=== PATIENT | male | born 1945 | race Caucasian/White ===

== ENCOUNTER 2017-06-14 18:49 | Emergency (ER) | payer OTHER ==
[~2017-06-14] VITALS: Ht 180.3 cm; Wt 110.9 kg
[~2017-06-14 18:49] MED LIST: CLONAZEPAM0.5 MG PO; COLACE100 MG PO; FISH OIL 1,0001 EAC7 PO; FLEXERIL10 MG PO; HYDROCHLOROTHIA25 MG PO; LISINOPRIL40 MG PO; LITE COAT ASPI325 M1 PO; MUCINEX600 MG PO; SERTRALINE HCL100 MG PO; SIMVASTATIN80 MG PO; SINGULAIR10 MG PO; TRAZODONE HCL50 MG PO; TYLENOL REGULA325 MG PO; VITAMIN E400 UNIT PO
[2017-06-14 19:31] LABS: HEMATOCRIT 40.3 % (38.0-50.0); HEMOGLOBIN 14.1 G/DL (12.5-16.6); MCV 88.6 FL (86-99); PLATELET COUNT 157 K/uL (156-360); RBC DIS.WIDTH-SD 38.6 % (39-53); RED BLOOD COUNT 4.55 M/uL (4.00-5.50)
[2017-06-14 19:41] LABS: CHLORIDE 104 mEq/L (99-109); POTASSIUM 3.9 mEq/L (3.7-5.4); SODIUM 137 mEq/L (136-147)
[2017-06-14 19:43] LABS: GLUCOSE 107 mg/dL (70-99)
[2017-06-14 19:46] LABS: GFR ESTIMATE (CALCULATED) > 59 mL/min/ (58.99-99999)
[2017-06-14 19:47] LABS: UREA NITROGEN (BUN) 15 mg/dL (9-23)
[2017-06-14] MEDS ORDERED: PREDNISONE50 MG PO (21:45)
[2017-06-14] MEDS ORDERED: ZITHROMAX Z-PA250 MG PO (21:45)
[2017-06-14 22:15] VITALS: BP 154/80
== END 2017-06-14 22:16 | disposition home or self-care (01) ==
LOC: EME 18:49
DX: J18.9 Pneumonia, unspecified organism (principal); J44.0 Chronic obstructive pulmonary disease with (acute) lower respiratory infection; J44.1 Chronic obstructive pulmonary disease with (acute) exacerbation; I10 Essential (primary) hypertension; Z87.891 Personal history of nicotine dependence; Z95.0 Presence of cardiac pacemaker; Z88.5 Allergy status to narcotic agent
CPT/HCPCS: 71046; 80048; 85027; 94640; 94640 76; 99281; 99285; J0696; J1100